=== PATIENT | female | born 1995 | race Caucasian/White ===

== ENCOUNTER 2021-01-26 21:01 | Inpatient (IN) | payer BC ==
[2021-01-26] MEDS ORDERED: ONDANSETRON 4 MG/2 ML VIAL IVPUSH ONE (21:40)
[2021-01-26] MEDS ORDERED: SODIUM CHLORIDE 1,000 ML IV STA (21:40)
[2021-01-26] MEDS ORDERED: ACETAMINOPHEN 1000 MG/100 ML VIAL (NON FORMULARY) IVPB ONE (21:43)
[2021-01-26] MEDS ORDERED: ACETAMINOPHEN INJECTION 100 ML IVPB ONE (21:59)
[2021-01-26] MEDS ORDERED: ONDANSETRON 4 MG/2 ML VIAL ONE (21:59)
[2021-01-26 22:20] LABS: BASO % 0.3 % (0-2.0); EOS % 2.4 % (0-4.5); HEMATOCRIT 35.4 % (32.4-45.2); HEMOGLOBIN 11.9 GM/dL (10.7-15.3); MCH 27.7 pg (25.7-33.7); MCHC 33.7 g/dl (32.0-36.0); MEAN PLT VOLUME 8.7 fl (7.5-11.1); MONO % 9.6 % (3.8-10.2); NEUT % 69.7 % (42.8-82.8); PLATELET COUNT 217 K/MM3 (134-434); RBC 4.32 M/mm3 (3.60-5.2); RDW 12.9 % (11.6-15.6); WHITE BLOOD COUNT 13.7 K/mm3 (4.0-10.0)
[2021-01-26 22:22] LABS: PH,URINE 6.5 (5.0-8.0); URINE APPEARANCE CLEAR; URINE BILIRUBIN NEGATIVE (NEGATIVE); URINE COLOR YELLOW; URINE GLUCOSE (UA) NEGATIVE (NEGATIVE); URINE KETONE NEGATIVE (NEGATIVE); URINE LEUK ESTERASE NEGATIVE (NEGATIVE); URINE NITRITE NEGATIVE (NEGATIVE); URINE PROTEIN NEGATIVE (NEGATIVE)
[2021-01-26 22:24] LABS: HCG,QUALITATIVE URINE Negative
[2021-01-26 22:41] LABS: CALCIUM 8.9 mg/dL (8.5-10.1)
[2021-01-26 22:42] LABS: ALBUMIN 3.5 g/dl (3.4-5.0); BLOOD UREA NITROGEN 10.1 mg/dL (7-18)
[2021-01-26 22:45] LABS: CREATININE 0.5 mg/dL (0.55-1.3)
[2021-01-26 22:46] LABS: BILIRUBIN,TOTAL 0.6 mg/dL (0.2-1); TOT PROT 7.3 g/dl (6.4-8.2)
[2021-01-27] MEDS ORDERED: PIPERACILLIN/TAZOBACTAM 4.5 GM VIAL IVPB ONE ×3 (00:51→17:15)
[2021-01-27] MEDS ORDERED: PIPERACILLIN/TAZOB 4.5 GM 4.5 GM/100 ML BAG IVPB ONE (00:58)
[2021-01-27] MEDS: SODIUM CHLORIDE 1,000 ML IV SCH ×4 (01:14→17:05)
[2021-01-27] MEDS ORDERED: ONDANSETRON 4 MG/2 ML VIAL IVPUSH PRN ×3 (03:07→16:10)
[2021-01-27] MEDS ORDERED: MORPHINE SULFATE 2 MG/ML VIAL IVPUSH PRN (03:22)
[2021-01-27 04:07] VITALS: BMI 29.6
[2021-01-27 08:36] LABS: BASO % 0.2 % (0-2.0); HEMATOCRIT 35.1 % (32.4-45.2); HEMOGLOBIN 11.7 GM/dL (10.7-15.3); LYMPH % 14.3 % (8-40); MCH 27.7 pg (25.7-33.7); MCHC 33.3 g/dl (32.0-36.0); MEAN CELL VOLUME 83.1 fl (80-96); MEAN PLT VOLUME 9.3 fl (7.5-11.1); MONO % 9.4 % (3.8-10.2); NEUT % 74.1 % (42.8-82.8); PLATELET COUNT 214 K/MM3 (134-434); RBC 4.22 M/mm3 (3.60-5.2); RDW 13.3 % (11.6-15.6); WHITE BLOOD COUNT 13.7 K/mm3 (4.0-10.0)
[2021-01-27 08:38] LABS: INR 1.15 (0.83-1.09); PROTHROMBIN TIME (PATIENT) 14.1 SEC (9.7-13.0)
[2021-01-27] MEDS ORDERED: DEXTROSE 5%-WATER 100 ML IVPB ONE ×2 (09:11→17:15)
[2021-01-27 09:52] LABS: CALCIUM 8.2 mg/dL (8.5-10.1)
[2021-01-27 09:53] LABS: ALBUMIN 3.3 g/dl (3.4-5.0); MAGNESIUM 2.1 mg/dL (1.8-2.4)
[2021-01-27 09:56] LABS: BLOOD UREA NITROGEN 6.6 mg/dL (7-18); CREATININE 0.4 mg/dL (0.55-1.3)
[2021-01-27 09:57] LABS: BILIRUBIN,TOTAL 0.7 mg/dL (0.2-1)
[2021-01-27] MEDS ORDERED: PIPERACILLIN/TAZOB 4.5 GM 4.5 GM in DEXTROSE 5%-WATER 100 ML IVPB SCH (10:00)
[2021-01-27] MEDS ORDERED: LIDOCAINE HCL/PF 2% SDV 5ML VIAL ONE (10:35)
[2021-01-27] MEDS ORDERED: PROPOFOL 20 ML ONE (10:36)
[2021-01-27] MEDS ORDERED: ROCURONIUM BROMIDE 50 MG/5 ML SYRINGE ONE ×2 (10:36→17:54)
[2021-01-27] MEDS ORDERED: SUCCINYLCHOLINE CHLORIDE 200 MG/10 ML SYRINGE ONE (10:36)
[2021-01-27] MEDS ORDERED: MIDAZOLAM HCL 2 MG/2 ML SINGLE DOSE VIAL ONE (10:36)
[2021-01-27] MEDS ORDERED: BUPIVACAINE HCL/PF 0.5% (5MG/ML) 10 ML VIAL ONE (11:26)
[2021-01-27] MEDS ORDERED: GLYCOPYRROLATE 0.2 MG/1 ML VIAL ONE ×2 (13:42→18:01)
[2021-01-27] MEDS ORDERED: NEOSTIGMINE METHYLSULFATE 0.5 MG/ML - 10 ML MDV ONE ×2 (13:42→18:01)
[2021-01-27] MEDS ORDERED: DESFLURANE GAS 240 ML BOTTLE IH ONE (13:57)
[2021-01-27] MEDS ORDERED: BUPIVACAINE HCL/PF 0.5% (5MG/ML) 10 ML VIAL IJ ONE (13:58)
[2021-01-27] MEDS ORDERED: oxyCODONE HCL 5 MG TABLET PO PRN (16:10)
[2021-01-27] MEDS ORDERED: PROMETHAZINE HCL 25 MG/1 ML VIAL IVPUSH PRN (16:10)
[2021-01-27] MEDS: MORPHINE SULFATE 2 MG/ML VIAL IVPUSH PRN ×2 (17:25→22:18)
[2021-01-27] MEDS: PIPERACILLIN/TAZOB 4.5 GM 4.5 GM in DEXTROSE 5%-WATER 100 ML IVPB SCH (17:27)
[2021-01-27] MEDS ORDERED: KETOROLAC TROMETHAMINE 30 MG/1 ML VIAL ONE (18:01)
[2021-01-27] MEDS ORDERED: DEXAMETHASONE SOD PHOSPHATE 4 MG/1 ML VIAL ONE (18:01)
[2021-01-27] MEDS ORDERED: ACETAMINOPHEN INJECTION 100 ML IVPB ONE (18:03)
[2021-01-27] MEDS ORDERED: ACETAMINOPHEN 1000 MG/100 ML VIAL (NON FORMULARY) IVPB PRN (20:30)
[2021-01-27] MEDS ORDERED: IBUPROFEN 800 MG/8 ML IJ IVPB PRN (20:30)
[2021-01-28] MEDS ORDERED: DEXTROSE 5%-WATER 100 ML IVPB ONE (00:30)
[2021-01-28] MEDS ORDERED: PIPERACILLIN/TAZOBACTAM 4.5 GM VIAL IVPB ONE (00:30)
[2021-01-28] MEDS: SODIUM CHLORIDE 1,000 ML IV SCH ×3 (01:43→20:22)
[2021-01-28] MEDS: PIPERACILLIN/TAZOB 4.5 GM 4.5 GM in DEXTROSE 5%-WATER 100 ML IVPB SCH ×3 (01:44→19:28)
[2021-01-28] MEDS: MORPHINE SULFATE 2 MG/ML VIAL IVPUSH PRN ×4 (03:25→18:08)
[2021-01-28 07:27] LABS: BASO % 0.2 % (0-2.0); EOS % 0.3 % (0-4.5); HEMATOCRIT 30.6 % (32.4-45.2); HEMOGLOBIN 10.4 GM/dL (10.7-15.3); LYMPH % 13.6 % (8-40); MCH 27.8 pg (25.7-33.7); MEAN CELL VOLUME 81.8 fl (80-96); MEAN PLT VOLUME 8.4 fl (7.5-11.1); MONO % 9.3 % (3.8-10.2); NEUT % 76.6 % (42.8-82.8); PLATELET COUNT 202 K/MM3 (134-434); RBC 3.74 M/mm3 (3.60-5.2); RDW 13.1 % (11.6-15.6); WHITE BLOOD COUNT 13.7 K/mm3 (4.0-10.0)
[2021-01-28 08:04] LABS: CALCIUM 7.9 mg/dL (8.5-10.1)
[2021-01-28 08:05] LABS: ALBUMIN 2.7 g/dl (3.4-5.0)
[2021-01-28 08:08] LABS: CREATININE 0.4 mg/dL (0.55-1.3)
[2021-01-28 08:09] LABS: BILIRUBIN,TOTAL 0.5 mg/dL (0.2-1)
[2021-01-28 08:10] LABS: TOT PROT 6.1 g/dl (6.4-8.2)
[2021-01-28] MEDS ORDERED: PIPERACILLIN/TAZOB 3.375 GM 3.375 GM in DEXTROSE 5%-WATER - 50 ML IVPB SCH (09:00)
[2021-01-28] MEDS ORDERED: DEXTROSE 5%-WATER - 50 ML IVPB ONE ×2 (11:42→18:05)
[2021-01-28] MEDS ORDERED: PIPERACILLIN/TAZOBACTAM 3.375 GM VIAL IVPB ONE ×2 (11:42→18:05)
[2021-01-28] MEDS: PIPERACILLIN/TAZOB 3.375 GM 3.375 GM in DEXTROSE 5%-WATER - 50 ML IVPB SCH ×2 (11:58→18:09)
[2021-01-28] MEDS ORDERED: ACETAMINOPHEN 325 MG TABLET (FP) PO ONE (21:18)
[2021-01-29] MEDS ORDERED: PIPERACILLIN/TAZOBACTAM 3.375 GM VIAL IVPB ONE ×3 (00:51→16:49)
[2021-01-29] MEDS ORDERED: DEXTROSE 5%-WATER - 50 ML IVPB ONE ×3 (00:51→16:49)
[2021-01-29] MEDS: MORPHINE SULFATE 2 MG/ML VIAL IVPUSH PRN ×3 (00:55→18:46)
[2021-01-29] MEDS: PIPERACILLIN/TAZOB 3.375 GM 3.375 GM in DEXTROSE 5%-WATER - 50 ML IVPB SCH ×3 (01:35→17:00)
[2021-01-29] MEDS: SODIUM CHLORIDE 1,000 ML IV SCH ×3 (05:15→22:49)
[2021-01-29 07:30] LABS: BASO % 0.4 % (0-2.0); HEMATOCRIT 29.2 % (32.4-45.2); LYMPH % 17.3 % (8-40); MCHC 34.4 g/dl (32.0-36.0); MEAN CELL VOLUME 81.2 fl (80-96); MEAN PLT VOLUME 8.2 fl (7.5-11.1); MONO % 11.7 % (3.8-10.2); NEUT % 68.6 % (42.8-82.8); PLATELET COUNT 189 K/MM3 (134-434); RBC 3.59 M/mm3 (3.60-5.2); WHITE BLOOD COUNT 8.6 K/mm3 (4.0-10.0)
[2021-01-29 08:01] LABS: CALCIUM 7.7 mg/dL (8.5-10.1)
[2021-01-29 08:02] LABS: ALBUMIN 2.6 g/dl (3.4-5.0); BLOOD UREA NITROGEN 4.1 mg/dL (7-18)
[2021-01-29 08:05] LABS: CREATININE 0.4 mg/dL (0.55-1.3)
[2021-01-29 08:06] LABS: BILIRUBIN,TOTAL 0.4 mg/dL (0.2-1)
[2021-01-29] MEDS ORDERED: oxyCODONE HCL 5 MG TABLET PO PRN (08:09)
[2021-01-29] MEDS: BENZOCAINE/MENTH/CETYLPYRD CL 1 EACH LOZENGE MM PRN ×2 (17:23→20:09)
[2021-01-29] MEDS: ACETAMINOPHEN 500 MG TABLET (FP) PO PRN (20:05)
[2021-01-30] MEDS ORDERED: DEXTROSE 5%-WATER - 50 ML IVPB ONE ×3 (01:24→17:17)
[2021-01-30] MEDS ORDERED: PIPERACILLIN/TAZOBACTAM 3.375 GM VIAL IVPB ONE ×3 (01:24→17:17)
[2021-01-30] MEDS: PIPERACILLIN/TAZOB 3.375 GM 3.375 GM in DEXTROSE 5%-WATER - 50 ML IVPB SCH ×3 (02:15→17:26)
[2021-01-30] MEDS: MORPHINE SULFATE 2 MG/ML VIAL IVPUSH PRN (04:12)
[2021-01-30] MEDS ORDERED: PT OWN MED DRAWER 7, Y5N ONE ×2 (06:44→10:00)
[2021-01-30 08:50] LABS: HEMATOCRIT 31.6 % (32.4-45.2); HEMOGLOBIN 10.6 GM/dL (10.7-15.3); MCH 27.5 pg (25.7-33.7); MCHC 33.6 g/dl (32.0-36.0); MEAN CELL VOLUME 81.8 fl (80-96); MEAN PLT VOLUME 8.2 fl (7.5-11.1); PLATELET COUNT 217 K/MM3 (134-434); RBC 3.87 M/mm3 (3.60-5.2); WHITE BLOOD COUNT 7.4 K/mm3 (4.0-10.0)
[2021-01-30 09:15] LABS: ALBUMIN 2.7 g/dl (3.4-5.0); BLOOD UREA NITROGEN 4.2 mg/dL (7-18); CALCIUM 8.2 mg/dL (8.5-10.1)
[2021-01-30 09:17] LABS: BILIRUBIN,TOTAL 0.3 mg/dL (0.2-1)
[2021-01-30 09:18] LABS: CREATININE 0.4 mg/dL (0.55-1.3); TOT PROT 6.3 g/dl (6.4-8.2)
[2021-01-30 09:19] LABS: PHOSPHOROUS 2.5 mg/dL (2.5-4.9)
[2021-01-30] MEDS: BENZOCAINE/MENTH/CETYLPYRD CL 1 EACH LOZENGE MM PRN ×2 (17:27→22:10)
[2021-01-30] MEDS: ACETAMINOPHEN 500 MG TABLET (FP) PO PRN (22:10)
[2021-01-31] MEDS: PIPERACILLIN/TAZOB 3.375 GM 3.375 GM in DEXTROSE 5%-WATER - 50 ML IVPB SCH ×2 (03:00→09:19)
[2021-01-31] MEDS ORDERED: DEXTROSE 5%-WATER - 50 ML IVPB ONE ×2 (03:26→09:01)
[2021-01-31] MEDS ORDERED: PIPERACILLIN/TAZOBACTAM 3.375 GM VIAL IVPB ONE ×2 (03:26→09:01)
[2021-01-31 06:45] VITALS: BP 112/66; PULSE 68; TEMP 98.1
[2021-01-31] MEDS: ACETAMINOPHEN 500 MG TABLET (FP) PO PRN (11:39)
== END 2021-01-31 15:34 | disposition home or self-care (01) | DRG 340 ==
LOC: JER 21:01 → JERBED 01-27 01:38 → J8W 01-27 03:20
PROVIDERS: ADMIT Internal Medicine; ATTEND Student in an Organized Health Care Education/Training Program
PROC: 0DTJ4ZZ Resection of Appendix, Percutaneous Endoscopic Approach (ICD-10-PCS; principal; 2021-01-27 14:00)
DX: K35.32 Acute appendicitis with perforation, localized peritonitis, and gangrene, without abscess (principal)
CPT/HCPCS: 36415; 74177-TC; 80048; 80053; 81003; 83605; 83735; 84100; 84703; 85025; 85027; 85610; 86850; 86900; 86901; 87040; 88304-TC; 93005; 93010; 94760; 99285-25; C9803; J0131; Q9967; U0003; U0005